=== PATIENT | female | born 1995 | race Hispanic/Latino ===

== ENCOUNTER 2022-04-15 18:20 | Emergency (ER) | payer BC, MEDICAID, OTHER | END 2022-04-15 20:03 | disposition home or self-care (01) | LOC: CSHERS 18:20 | DX: R20.2 Paresthesia of skin (principal); E11.9 Type 2 diabetes mellitus without complications | CPT/HCPCS: 36416; 99284 ==

== ENCOUNTER 2022-07-30 17:09 | Emergency (ER) | payer MEDICAID ==
[2022-07-30] MEDS ORDERED: Acetaminophen 500 MG TAB ONE (18:15)
[2022-07-30 18:54] LABS: #Basophils 0.1 10x3/uL (0.0-0.2); #Eosinphils 0.1 10x3/uL (0.0-0.5); #Monocytes 0.6 10x3/uL (0.0-1.1); #Neutrophils 4.3 10x3/uL (1.5-8.4); %Basophils 0.8 % (0.0-2.0); %Lymphocytes 27.9 % (18.0-47.0); %Monocytes 7.9 % (0.0-10.0); %Neutrophils 61.1 % (40.0-75.0); Hemoglobin 13.4 g/dL (12.0-15.5); Mean Corpuscular HGB CONC 32.6 g/dL (32.0-36.0); Mean Corpuscular Hemoglobin 27.8 pg (27.0-33.0); Mean Corpuscular Volume 85.3 fl (81.6-98.3); Mean Platelet Volume 11.4 fl (7.4-10.4); Platelet Count 271 10x3/uL (150-450); RBC Distribution Width 13.3 % (11.5-14.5); Red Blood Cell (RBC) Count 4.82 10x6/uL (3.90-5.03); White Blood Cell (WBC) Count 7.1 10x3/uL (3.5-10.5)
== END 2022-07-30 20:10 | disposition home or self-care (01) ==
LOC: CSHERS 17:09
DX: O03.80 Unspecified complication following complete or unspecified spontaneous abortion (principal); E11.9 Type 2 diabetes mellitus without complications; Z3A.01 Less than 8 weeks gestation of pregnancy
CPT/HCPCS: 36415; 76856; 84702; 85025; 86900; 86901; 93976

== ENCOUNTER 2023-02-23 19:22 | Emergency (ER) | payer MEDICAID, OTHER ==
[2023-02-23] MEDS ORDERED: Acetaminophen 325 MG TAB ONE (19:57)
== END 2023-02-23 20:43 | disposition short-term general hospital (02) ==
LOC: CSHERS 19:22
DX: O9A.211 Injury, poisoning and certain other consequences of external causes complicating pregnancy, first trimester (principal); S06.9X1A Unspecified intracranial injury with loss of consciousness of 30 minutes or less, initial encounter; S00.83XA Contusion of other part of head, initial encounter; S10.93XA Contusion of unspecified part of neck, initial encounter; S30.1XXA Contusion of abdominal wall, initial encounter; S60.222A Contusion of left hand, initial encounter; O9A.411 Sexual abuse complicating pregnancy, first trimester; O24.111 Pre-existing type 2 diabetes mellitus, in pregnancy, first trimester; Z79.84 Long term (current) use of oral hypoglycemic drugs; Z3A.11 11 weeks gestation of pregnancy; Y04.8XXA Assault by other bodily force, initial encounter
CPT/HCPCS: 99284

== ENCOUNTER 2023-06-17 18:34 | Observation (INO) | payer BC, OTHER ==
[2023-06-17 20:26] VITALS: BMI 39.4
[2023-06-19 07:44] VITALS: BP 104/57; TEMP 98.1
== END 2023-06-19 10:55 | disposition home or self-care (01) ==
LOC: CSHLD 18:34 → INTOOBSV 18:34 → CSHLD 20:10 → CSHANTE 22:02
PROVIDERS: ADMIT Family Medicine; ATTEND Family Medicine
DX: O09.92 Supervision of high risk pregnancy, unspecified, second trimester (principal); O24.112 Pre-existing type 2 diabetes mellitus, in pregnancy, second trimester; O99.342 Other mental disorders complicating pregnancy, second trimester; F43.10 Post-traumatic stress disorder, unspecified; F41.9 Anxiety disorder, unspecified; O99.012 Anemia complicating pregnancy, second trimester; O99.212 Obesity complicating pregnancy, second trimester; Z87.891 Personal history of nicotine dependence; Z91.018 Allergy to other foods; Z79.82 Long term (current) use of aspirin; Z79.4 Long term (current) use of insulin; Z79.84 Long term (current) use of oral hypoglycemic drugs; Z79.899 Other long term (current) drug therapy; Z3A.27 27 weeks gestation of pregnancy
CPT/HCPCS: 36416; 76815; 80053; 81001; 83036; 84156; 85025; 99285; J1815

== ENCOUNTER 2023-08-14 09:52 | Day surgery (SDC) | payer OTHER ==
[2023-08-14 10:12] VITALS: BMI 42.2
[2023-08-14] MEDS ORDERED: hydrALAZINE 20 MG/ML VIAL SLOW IVP PRN (10:35)
== END 2023-08-14 12:06 | disposition home or self-care (01) ==
LOC: CSHLD/OP 09:52
PROVIDERS: ATTEND Family Medicine
DX: O36.8330 Maternal care for abnormalities of the fetal heart rate or rhythm, third trimester, not applicable or unspecified (principal); O24.113 Pre-existing type 2 diabetes mellitus, in pregnancy, third trimester; Z91.018 Allergy to other foods; Z79.4 Long term (current) use of insulin; Z79.899 Other long term (current) drug therapy; Z3A.36 36 weeks gestation of pregnancy
CPT/HCPCS: 76819